=== PATIENT | male | born 1970 | race Caucasian/White ===

== ENCOUNTER → 2019-10-19 08:42 | Outpatient (CLI) | payer SELFPAY ==
[2019-10-05 10:27] VITALS: BMI 26.9
--- NOTE | 2019-10-19 08:44 | ECHOD_ITS ---
Reason For Study: SYNCOPE/NEAR SYNCOPE Procedure This was a 2D Doppler, Color Flow transthoracic echocardiogram. Exam performed in department. Left Ventricle Normal LV size. Left ventricular systolic function is normal. The estimated ejection fraction is 65 %. Normal diastology for age. No regional wall motion abnormalities noted. Right Ventricle Normal RV size. Normal systolic function. Atria Normal left atrium. Normal right atrium. Mitral Valve Normal mitral valve. Tricuspid Valve Normal tricuspid valve. Aortic Valve Normal aortic valve. Trisinus/trileaflet aortic valve. Pulmonic Valve Normal pulmonic valve. Great Vessels Normal aortic root. The pulmonary artery is normal size. Normal inferior vena cava. Pericardium/Pleural No pericardial effusion. MMode/2D Measurements & Calculations LVIDd: 4.1 cm IVSd: 0.69 cm Ao root diam: 3.1 cm LVIDs: 2.8 cm LVPWd: 0.71 cm RVDd: 3.5 cm FS: 31.6 % LAV(MOD-bp): 34.6 ml LVAd ap4: 27.5 cm2 SV(MOD-sp4): 46.8 ml LAV(MOD-bp) Indexed: 18.8 ml/m2 EDV(MOD-sp4): 77.6 ml LAV(MOD-sp2): 34.3 ml EDV(sp4-el): 81.8 ml LAV(MOD-sp4): 35.2 ml LVAs ap4: 16.1 cm2 ESV(MOD-sp4): 30.8 ml ESV(sp4-el): 30.9 ml EF(MOD-sp4): 60.3 % EF(sp4-el): 62.2 % SV(sp4-el): 50.8 ml LA A4 area: 15.0 cm2 LA dimension(2D): 3.2 cm RA A4 area: 18.0 cm2 Time Measurements MV dec time: 0.22 sec Doppler Measurements & Calculations MV E max indio: 95.9 cm/sec Lat Peak E' [place]: 13.5 cm/sec Med Peak E' [place]: 10.2 cm/sec MV A max indio: 62.0 cm/sec E/E' lat: 7.1 E/E' med: 9.4 MV E/A: 1.5 Ao V2 max: 135.7 cm/sec LV V1 max: 104.9 cm/sec PA V2 max: 118.3 cm/sec Ao max P.4 mmHg LV V1 max P.4 mmHg PI end-d indio: 87.8 cm/sec TR max indio: 212.4 cm/sec TR max P.1 mmHg Interpretation Summary Normal LV size. Left ventricular systolic function is normal. The estimated ejection fraction is 65 %. Normal diastology for age. Ordering Physician: Prabhakar Barros Referring Physician: YUNIER CARTER Performed By: Perla Bess RDCS
== END ==
PROVIDERS: PCP Family Medicine; Referring Provider Internal Medicine Cardiovascular Disease; Visit Provider Internal Medicine Cardiovascular Disease
DX: R55 Syncope and collapse (principal)
CPT/HCPCS: 93306